=== PATIENT | female | born 1990 | race Two or more races ===

== ENCOUNTER 2025-03-23 18:50 | Emergency (ER) | payer OTHER ==
[~2025-03-23] VITALS: Ht 177.8 cm; Wt 46.3 kg
[2025-03-23] MEDS ORDERED: ORPHENADRINE CITRATE 30 MG/ML AMPUL IM STA (23:01)
[2025-03-23] MEDS ORDERED: KETOROLAC TROMETHAMINE 30 MG VIAL IM STA (23:01)
[2025-03-23] MEDS ORDERED: ZANAFLEX4 M1 PO (23:11)
[2025-03-23] MEDS ORDERED: DICLOFENAC POTA50 MG PO (23:11)
[2025-03-23] MEDS ORDERED: ORPHENADRINE CITRATE 30 MG/ML AMPUL ONE (23:13)
[2025-03-23] MEDS ORDERED: KETOROLAC TROMETHAMINE 60 MG VIAL IM ONE (23:14)
== END 2025-03-23 23:35 | disposition home or self-care (01) ==
LOC: ER 18:50
DX: M54.2 Cervicalgia (principal); W18.39XA Other fall on same level, initial encounter; Y93.89 Activity, other specified; Y92.89 Other specified places as the place of occurrence of the external cause; M54.50 Low back pain, unspecified